=== PATIENT | male | born 2005 | race Caucasian/White ===

== ENCOUNTER 2023-12-29 15:54 | Emergency (ER) | payer SELFPAY ==
[~2023-12-29] VITALS: Ht 170.2 cm; Wt 81.6 kg
[2023-12-29 16:07] VITALS: BP 133/93; PULSE 125; RESP 20; TEMP 98.2; O2SAT 100
[2023-12-29 16:16] VITALS: O2SAT 100
[2023-12-29] MEDS: ONDANSETRON 4 MG/2 ML VIAL IVP ONE (16:45)
[2023-12-29] MEDS: NACL 0.9% 2,000 ML IV ONE (16:45)
[2023-12-29] MEDS: LORazepam 2 MG/ML VIAL IVP ONE (18:23)
[2023-12-29 18:41] VITALS: BP 127/76; PULSE 84; RESP 15; TEMP 98.5; O2SAT 99
== END 2023-12-29 18:22 | disposition home or self-care (01) ==
LOC: MED 15:54
DX: F10.239 Alcohol dependence with withdrawal, unspecified (principal); F41.9 Anxiety disorder, unspecified; E86.0 Dehydration; Z79.899 Other long term (current) drug therapy; Y90.9 Presence of alcohol in blood, level not specified
CPT/HCPCS: 93005; 96361; 96374; 96375; 99284; J2060; J2405; J7030

== ENCOUNTER 2023-12-30 22:13 | Emergency (ER) | payer SELFPAY ==
[~2023-12-30] VITALS: Ht 170.2 cm; Wt 83.9 kg
[2023-12-30 22:56] VITALS: BP 111/84; PULSE 92; RESP 16; TEMP 98.3; O2SAT 100
[2023-12-31 00:07] LABS: BASOPHILS # (AUTO) 0.1 K/uL (0.00-0.22); BASOPHILS % (AUTO) 0.7 % (0.0-2.0); EOSINOPHILS # (AUTO) 0.4 K/uL (0-0.4); EOSINOPHILS % (AUTO) 4.7 % (0.0-4.0); HEMATOCRIT 42.8 % (36-52); HEMOGLOBIN 14.5 g/dL (12.0-18.0); LYMPHOCYTES # (AUTO) 1.4 K/uL (2.0-11.5); MEAN CORPUSCULAR HEMOGLOBIN 28 pg (27-31); MEAN CORPUSCULAR HGB CONC 34 g/dL (33-37); MEAN CORPUSCULAR VOLUME 81.8 fL (80-94); MONOCYTES # (AUTO) 0.7 K/uL (0.8-1.0); MONOCYTES % (AUTO) 9.2 % (1.7-9.3); NEUTROPHILS # (AUTO) 5.5 K/uL (1.8-7.7); NEUTROPHILS % (AUTO) 68.4 % (42.2-75.2); PLATELET COUNT (AUTO) 377 K/uL (140-450); RED BLOOD CELL COUNT(AUTO) 5.23 MIL/uL (4.20-6.10); WHITE BLOOD COUNT (AUTO) 8.1 K/uL (4.5-11.0)
[2023-12-31 00:20] LABS: ANION GAP 7.3 (8-16); CALCIUM 9.5 mg/dL (8.5-10.1); CARBON DIOXIDE 32.9 mmol/L (21-32); CREATININE 0.9 mg/dL (0.6-1.3); POTASSIUM 4.2 mmol/L (3.5-5.1); TOTAL BILIRUBIN 0.6 mg/dL (0.0-1.0); TOTAL PROTEIN, SERUM 9.5 g/dL (6.4-8.2)
[2023-12-31 00:42] LABS: APPEARANCE,URINE CLEAR (CLEAR); BILIRUBIN,URINE NEGATIVE (NEGATIVE); BLOOD, URINE NEGATIVE (NEGATIVE); COLOR,URINE YELLOW (YELLOW); LEUKOCYTE ESTERASE ,URINE NEGATIVE (NEGATIVE); NITRITE, URINE NEGATIVE (NEGATIVE); PH,URINE 7.5 (5.0-9.0); PROTEIN,URINE NEGATIVE (NEGATIVE); UGLUCOSE NEGATIVE (NEGATIVE); UROBILINOGEN,URINE 0.2 EU/dL (0.2 - 1)
[2023-12-31 00:51] LABS: AMPHETAMINE, URINE NEGATIVE ng/ml (NEG <=1000); BARBITURATE, URINE NEGATIVE ng/ml (NEG <=200); BENZODIAZEPINE, URINE POSITIVE ng/mL (NEG <=200); CANNABINOID, URINE NEGATIVE ng/mL (NEG <=50); COCAINE, URINE NEGATIVE ng/mL (NEG <=300); OPIATE, URINE NEGATIVE ng/mL (NEG <=2000); PHENCYCLIDINE SCREEN,URINE NEGATIVE ng/mL (NEG <=25)
[2023-12-31] MEDS: MECLIZINE 25 MG TAB PO ONE (02:08)
[2023-12-31] MEDS: KETOROLAC 30 MG/ML VIAL IVP ONE (02:10)
[2023-12-31] MEDS: NACL 0.9% 1,000 ML IV ONE (02:10)
[2023-12-31 02:12] VITALS: O2SAT 100
[2023-12-31] MEDS ORDERED: ACET-8001 PO (03:07)
[2023-12-31] MEDS ORDERED: MECL-303 PO (03:07)
[2023-12-31] MEDS ORDERED: ACET-10509 PO (03:07)
[2023-12-31] MEDS ORDERED: IBUP-2213 PO (03:07)
[2023-12-31] MEDS ORDERED: ONDA-188 SL (03:07)
== END 2023-12-31 03:18 | disposition home or self-care (01) ==
LOC: MED 22:13
DX: I95.1 Orthostatic hypotension (principal); E86.0 Dehydration; R51.9 Headache, unspecified; Z79.899 Other long term (current) drug therapy
CPT/HCPCS: 36415; 80053; 80305; 81003; 85025; 93005; 96361; 96374; 99284; J1885; J7030; J8597; 99283